=== PATIENT | female | born 1940 | race Caucasian/White ===

== ENCOUNTER 2019-08-15 07:03 | Outpatient (CLI) | payer MEDICARE, SELFPAY ==
--- NOTE | ~2019-08-15 | CT_ITS ---
EXAMINATION: CT chest abdomen pelvis w con DATE: 08/15/2019 07:52 INDICATION: Lymphoplasmacytic lymphoma TECHNIQUE: Computed tomography (CT) of the chest, abdomen, and pelvis was performed with 100 mL Omnip aque-350 intravenous contrast. Automated exposure control and iterative reconstruction technique were employed. The dose-length product was 399.03 mGy-cm. COMPARISON: Chest CT dated 05/26/2019 and 07/11/2008 FINDINGS: CHEST CT: No significant interval change in bilateral diffuse bronchiectatic changes with scattered regions of small centrilobular nodules and mucous plugging consistent with chronic infection. Unchanged band of discoid atelectasis/scarring in the lingula along the major fissure. No pulmonary edema, pleural effu anahy or pneumothorax. Mild cardiomegaly. No pericardial effusion. Thoracic aorta is normal in caliber with no dissection. No significant change in mild likely reactive mediastinal and left axillary lymp hadenopathy. Mild scattered degenerative skeletal changes in the spine and both shoulders. No suspici ous lytic or blastic bone lesions. ABDOMEN/PELVIS CT: Calcified gallstones within the normal-appearing gallbladder. 7 mm hepatic cyst. Spleen, bilateral a drenal glands and left kidney are normal. 1.4 cm right renal cyst. No interval change in appearance o f the spleen dating back to CT dated 07/11/2008 with relative atrophy of the body of the pancreas rel ative to the head and tail. There is marked colonic diverticulosis with a sigmoid predominance. Ther e is no adjacent inflammatory change to suggest diverticulitis. Small bowel and appendix are normal. Bladder, anteverted uterus and bilateral adnexa are unremarkable. There are small amount of ascites in the pelvis. No abscess or free intraperitoneal gas. There is calcified atherosclerosis of the aort a and many of the other arteries. There are multiple enlarged para-aortic and aortocaval lymph nodes in the abdominal retroperitoneum. For reference an aortocaval lymph node measures 4.0 x 2.3 x 1.0 cm and a left paraaortic lymph node at the level of L3-L4 measures 1.7 x 1.6 x 2.1 cm. Solution bone mar row biopsy tract at the right posterior iliac spine. 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 Chronic bone islands a t the left sacral ala. A few subtle lytic lesions in the L2, L3 and L4 vertebral bodies which could b e related to hemangiomas, metastatic disease or lymphoma. IMPRESSION: 1. No significant change in bronchiectasis with regions of small nodular opacities scattered througho ut both lungs consistent with chronic infection. 2. Mild left axillary, mediastinal and abdominal retroperitoneal lymphadenopathy, visualized portion which are unchanged since 05/26/2019 and differential would include reactive lymphadenopathy, metastat ic disease or lymphoma. 3. Cholelithiasis. 4. Diverticulosis. 5. A few subtle small lucent lesions in the L2, L3 and L4 vertebral bodies which could represent satish ngiomas, metastatic disease or lymphoma. Reviewed, dictated and finalized at location [facility] IMPRESSION: 1. No significant change in bronchiectasis with regions of small nodular opacit ies scattered throughout both lungs consistent with chronic infection. 2. Mild left axillary, mediastinal and abdominal retroperitoneal lymphadenopath y, visualized portion which are unchanged since 05/26/2019 and differential woul d include reactive lymphadenopathy, metastatic disease or lymphoma. 3. Cholelithiasis. 4. Diverticulosis. 5. A few subtle small lucent lesions in the L2, L3 and L4 vertebral bodies whic h could represent hemangiomas, metastatic disease or lymphoma.
== END 2019-08-15 07:04 | disposition home or self-care (01) ==
PROVIDERS: PCP Internal Medicine; Visit Provider Internal Medicine Hematology & Oncology
DX: C83.00 Small cell B-cell lymphoma, unspecified site (principal); K80.20 Calculus of gallbladder without cholecystitis without obstruction; K57.30 Diverticulosis of large intestine without perforation or abscess without bleeding
CPT/HCPCS: 36415; 71260; 74177; 80053; 80162; 82607; 82746; 83615; 85014; 85018; 85025; Q9967